=== PATIENT | male | born 1950 | race Caucasian/White ===

== ENCOUNTER 2017-01-08 16:22 | Emergency (ER) | payer OTHER ==
[~2017-01-08] VITALS: Ht 177.8 cm; Wt 83.0 kg
[~2017-01-08 16:22] MED LIST: ASPI-99 PO; IRBE150T49 PO; MULT-65 PO; NITR0.4S SL; NORV2.5T11 PO; PLAV75TA PO; ROSU5 PO
[2017-01-08 16:34] VITALS: BP 168/75; PULSE 51; RESP 16; TEMP 98.3; O2SAT 100
--- NOTE | 2017-01-08 16:50 | PD ---
HPI Chief Complaint: Injury Time Seen by Provider: 16:41 Travel History International Travel<30 days: No Contact w/Intl Traveler<30days: No Traveled to known affect area: No History of Present Illness HPI This 66-year-old male is complaining of headache. He went to visit a friend and one of the local rehabilitation facilities. He was walking and apparently walked into a clear glass. The glass did not break but he hit a glass quite hard with his head. He is having pain in the right frontal area where he hit his head. He has a history of coronary artery disease and is on Plavix. He has no numbness or tingling. He was not knocked to the ground but he was stunned. PFSH Past Medical History Hx Anticoagulant Therapy: Yes (PLAVIX) Blood Disorders: No Heart Rhythm Problems: No Cancer: Yes (PROSTATE) Cardiac Catheterization: No Cardiovascular Problems: No High Cholesterol: Yes Chemotherapy: No Chest Pain: No Congestive Heart Failure: No Cerebrovascular Accident: No Diabetes: No Endocrine: No Gastrointestinal Disorders: Yes (REFLUX) GERD: Yes Glaucoma: No Genitourinary: No Headaches: No Hepatitis: No Hiatal Hernia: No Hypertension: Yes Immune Disorder: No Musculoskeletal: Yes (DDD) Neurologic: No Psychiatric: No Reproductive: No Respiratory: Yes (EXSMOKER) Migraines: No Myocardial Infarction: No Radiation Therapy: No Seizures: No Thyroid Disease: No Ulcer: No Past Surgical History Abdominal Surgery: No AICD: No Appendectomy: No Cardiac Surgery: No Cholecystectomy: No Coronary Artery Bypass Graft: No Ear Surgery: No Endocrine Surgery: No Eye Surgery: No Genitourinary Surgery: Yes (PROSTATE SURG) Gynecologic Surgery: No Joint Replacement: No Oral Surgery: Yes (TONSILLECTOMY) Pacemaker: No Thoracic Surgery: No Other Surgery: Yes (L SHOULDER/L KNEE SURG) Social History Alcohol Use: No Tobacco Use: No (QUIT 10 YEARS AGO) Substance Use: No Allergies-Medications (Allergen,Severity, Reaction): Coded Allergies: No Known Allergies (Verified , 01/08/17) Reported Meds & Prescriptions Reported Meds & Active Scripts Active Reported Norvasc (Amlodipine Besylate) 5 Mg Tab 5 Mg PO DAILY Avapro (Irbesartan) 150 Mg Tab 150 Mg PO BID Plavix (Clopidogrel Bisulfate) 75 Mg Tab 75 Mg PO DAILY Review of Systems General / Constitutional: No: Fever, Chills Eyes: No: Diploplia HENT: Positive: Headaches Cardiovascular: No: Chest Pain or Discomfort, Palpitations Respiratory: No: Shortness of Breath Gastrointestinal: No: Nausea, Vomiting Genitourinary: No: Urgency, Frequency Musculoskeletal: No: Myalgias, Arthralgias Skin: No Rash, No Itching Neurologic: No: Weakness, Dizziness Hematologic/Lymphatic: No: Easy Bruising Physical Exam Narrative GENERAL: Well-developed male SKIN: Focused skin assessment warm/dry. HEAD: Atraumatic. Normocephalic. Site of impact was the right side of the forehead. There is no deformity at this site EYES: Pupils equal and round. No scleral icterus. No injection or drainage. ENT: No nasal bleeding or discharge. Mucous membranes pink and moist. NECK: Trachea midline. No JVD. CARDIOVASCULAR: Regular rate and rhythm. No murmur appreciated. RESPIRATORY: No accessory muscle use. Clear to auscultation. Breath sounds equal bilaterally. GASTROINTESTINAL: Abdomen soft, non-tender, nondistended. Hepatic and splenic margins not palpable. MUSCULOSKELETAL: No obvious deformities. No clubbing. No cyanosis. No edema. NEUROLOGICAL: Awake and alert. No obvious cranial nerve deficits. Motor grossly within normal limits. Normal speech. PSYCHIATRIC: Appropriate mood and affect; insight and judgment normal. Data Data Last Documented VS Vital Signs Date Time Temp Pulse Resp B/P Pulse Ox O2 Delivery O2 Flow Rate FiO2 01/08/17 17:26 51 16 157/78 98 Room Air 01/08/17 16:[address] Brain W/O Iv Contrast(Rout) (01/08/17 16:47) [facility] Medical Decision Making Medical Screen Exam Complete: Yes Emergency Medical Condition: Yes Medical Record Reviewed: Yes Differential Diagnosis Differential includes skull fracture, intracerebral hemorrhage, contusion Narrative Course CT of the head is negative for infarct, hemorrhage mass Diagnosis Primary Impression: Contusion of scalp, initial encounter Additional Instructions: Return if increased headache, unsteady gait, confusion Disposition: 01 DISCHARGE HOME Condition: Stable Sagar Moore MD Jan 08, 2017 16:50
[2017-01-08] MEDS ORDERED: ROSU10 PO (16:52)
[2017-01-08] MEDS ORDERED: PLAV75TA29 PO (16:52)
[2017-01-08] MEDS ORDERED: IRBE150T49 PO (16:52)
[2017-01-08] MEDS ORDERED: AMLO5 PO (16:52)
--- NOTE | 2017-01-08 17:24 | RADRPT ---
EXAM DATE/TIME: 01/08/2017 17:11 [place] COMPARISON: No previous studies available for comparison. INDICATIONS : Ran into a glass door. Headache. RADIATION DOSE: 62.88 CTDIvol (mGy) MEDICAL HISTORY : Hypertension. Carcinoma, prostate. Anticoagulant therapy. SURGICAL HISTORY : None. ENCOUNTER: Initial ACUITY: 1 day PAIN SCALE: 6/10 LOCATION: cranial TECHNIQUE: Multiple contiguous axial images were obtained of the head. Using automated exposure control and adj ustment of the mA and/or kV according to patient size, radiation dose was kept as low as reasonably a chievable to obtain optimal diagnostic quality images. DICOM format image data is available electro nically for review and comparison. FINDINGS: CEREBRUM: The ventricles are normal for age. No evidence of midline shift, mass lesion, hemorrhage or acute in farction. No extra-axial fluid collections are seen. POSTERIOR FOSSA: The cerebellum and brainstem are intact. The 4th ventricle is midline. The cerebellopontine angle i s unremarkable. EXTRACRANIAL: The visualized portion of the orbits is intact. SKULL: The calvaria is intact. No evidence of skull fracture. CONCLUSION: No acute disease. No evidence of acute infarct, hemorrhage, mass, contusion or edema. Praveen Soto MD on January 08, 2017 at 17:22 Board Certified Radiologist. This report was verified electronically.
[2017-01-08 17:26] VITALS: BP 157/78; PULSE 51; RESP 16; O2SAT 98
== END 2017-01-08 17:52 | disposition home or self-care (01) ==
LOC: PHED 16:22
DX: S00.03XA Contusion of scalp, initial encounter (principal); I10 Essential (primary) hypertension; E78.00 Pure hypercholesterolemia, unspecified; Z79.01 Long term (current) use of anticoagulants; Z85.46 Personal history of malignant neoplasm of prostate; Z87.19 Personal history of other diseases of the digestive system; Z87.39 Personal history of other diseases of the musculoskeletal system and connective tissue; W22.09XA Striking against other stationary object, initial encounter; Y93.01 Activity, walking, marching and hiking; Y92.89 Other specified places as the place of occurrence of the external cause
CPT/HCPCS: 70450; 99284